=== PATIENT | male | born 1955 | race Caucasian/White ===

== ENCOUNTER 2018-07-15 18:52 | Emergency (ER) | payer OTHER ==
[~2018-07-15] VITALS: Ht 180.3 cm; Wt 95.5 kg
[2018-07-15] MEDS ORDERED: ACETAMINOPHEN 500 MG TABLET PO ONE (20:00)
[2018-07-15] MEDS ORDERED: PROPARACAINE HCL 0.5% 15 ML OPHTHALMIC SOLUTION OD ONE (20:00)
[2018-07-15] MEDS ORDERED: HYPROMELLOSE 0.5% 15 ML OPHTHALMIC SOLUTION OD ONE (20:30)
[2018-07-15 20:47] VITALS: BP 138/74
== END 2018-07-15 20:48 | disposition home or self-care (01) ==
LOC: EMS 18:53
DX: H57.89 Other specified disorders of eye and adnexa (principal); H53.8 Other visual disturbances; Z87.891 Personal history of nicotine dependence